=== PATIENT | male | born 1995 | race Two or more races ===

== ENCOUNTER 2016-12-01 23:10 | Emergency (ER) | payer MEDICAID, OTHER ==
[~2016-12-01] VITALS: Ht 177.8 cm; Wt 158.8 kg
[2016-12-01 23:18] VITALS: BP 149/96
== END 2016-12-01 23:40 | disposition left against medical advice (07) ==
LOC: ER 23:32
DX: T65.91XA Toxic effect of unspecified substance, accidental (unintentional), initial encounter (principal); Z53.21 Procedure and treatment not carried out due to patient leaving prior to being seen by health care provider; Y92.89 Other specified places as the place of occurrence of the external cause

== ENCOUNTER 2018-04-18 13:42 | Emergency (ER) | payer MEDICAID, OTHER ==
[~2018-04-18] VITALS: Ht 175.3 cm; Wt 167.8 kg
[2018-04-18] MEDS ORDERED: SODIUM CHLORIDE 0.9% 1,000 ML IV ONE ×2 (13:45)
[2018-04-18 17:00] VITALS: BP 127/70
== END 2018-04-18 17:05 | disposition home or self-care (01) ==
LOC: EDBD 13:42 → ER 13:50
DX: T40.601A Poisoning by unspecified narcotics, accidental (unintentional), initial encounter (principal); R45.1 Restlessness and agitation; I10 Essential (primary) hypertension; F17.210 Nicotine dependence, cigarettes, uncomplicated; F12.90 Cannabis use, unspecified, uncomplicated; Z88.1 Allergy status to other antibiotic agents; Z88.8 Allergy status to other drugs, medicaments and biological substances; Y92.89 Other specified places as the place of occurrence of the external cause
CPT/HCPCS: 93005